=== PATIENT | male | born 1960 | race Hispanic/Latino ===

== ENCOUNTER 2019-01-07 05:48 | Day surgery (SDC) | payer BC ==
[2019-01-07 07:01] VITALS: BMI 25.1
[2019-01-07] MEDS ORDERED: Sodium Chloride 0.9% 1,000 ML IV ONE (08:10)
[2019-01-07] MEDS ORDERED: Propofol 10 mg/ml Inj (20 ML) ONE (08:11)
--- NOTE | 2019-01-07 08:11 | CP.SDSHP ---
Same Day Surgery H & P - History Proposed Procedure: endoscopy Pre-Op Diagnosis: dysphagia - Previous Medical/Surgical History Comments: renal Transplant - Allergies Allergies: Allergies No Known Allergies Allergy (Verified 01/07/19 06:55) - Physical Exam Vital Signs: Vital Signs 01/07/19 06:30 Temperature 97.5 F L Pulse Rate 80 Respiratory 20 Rate Blood Pressure 130/65 O2 Sat by Pulse 99 Oximetry Mental Status: Alert & Oriented x3 Neuro: WNL Heart: WNL Lungs: WNL GI: WNL - {Optional Preform as Required} Abdomen: WNL - Impression Impression: dysphagia Pt. Evaluated Today:Candidate for Anesthesia & Procedure: Yes - Date & Time Date: 01/07/19 Time: 08:00 Short Stay Discharge - Short Stay Discharge Admitting Diagnosis/Reason for Visit: DYSPHAGIA Disposition: HOME/ ROUTINE
[2019-01-07 08:49] VITALS: O2SAT 100
[2019-01-07 09:29] VITALS: BP 104/65; PULSE 70; RESP 18; TEMP 97.2
== END 2019-01-07 09:25 | disposition home or self-care (01) ==
LOC: C.ENDO 05:48
PROVIDERS: ATTEND Internal Medicine Gastroenterology
DX: K29.70 Gastritis, unspecified, without bleeding (principal); K20.9 Esophagitis, unspecified; K44.9 Diaphragmatic hernia without obstruction or gangrene; K29.50 Unspecified chronic gastritis without bleeding
CPT/HCPCS: 43239; 88305; 88312; 88342; J2001; J2704; J7030

== ENCOUNTER 2019-01-21 06:08 | Day surgery (SDC) | payer BC | END 2019-01-21 10:07 | disposition home or self-care (01) | LOC: C.ENDO 06:08 | CPT/HCPCS: 36415; 43249; 80048; 85025; 85610; 85730; C1726; J2250; J2704 ==